=== PATIENT | male | born 1950 | race Caucasian/White ===

== ENCOUNTER 2017-12-01 06:19 | Observation (INO) | payer MEDICARE, MEDICAID ==
[~2017-12-01 06:19] MED LIST: Buffered Lidocaine 0.9% SYRIN* 5 ML/SYR SYRINGE INTRADERM ONE; Famotidine IV* 10 MG/ML 2 ML (20 mg) IV ONE; Metoclopramide TAB* 10 MG PO ONE
[2017-12-01] MEDS ORDERED: Famotidine IV* 10 MG/ML 2 ML (20 mg) ONE (06:50)
[2017-12-01] MEDS ORDERED: Buffered Lidocaine 0.9% SYRIN* 5 ML/SYR SYRINGE ONE (06:50)
[2017-12-01] MEDS ORDERED: Metoclopramide TAB* 10 MG ONE (06:50)
[2017-12-01] MEDS ORDERED: ceFAZolin 2 GM PREMIX (*) 2 GM/50 ML BAG IVPB ONE (06:50)
[2017-12-01] MEDS ORDERED: Rocuronium* 10 MG/ML VIAL ONE (07:05)
[2017-12-01] MEDS ORDERED: Propofol* 10 MG/ML 20 ML BTL IV PUSH ONE (07:05)
[2017-12-01] MEDS ORDERED: Ondansetron ODT TAB* 4 MG ONE (07:05)
[2017-12-01] MEDS ORDERED: Midazolam* 1 MG/ML 5 ML VIAL (5 MG) ONE (07:05)
[2017-12-01] MEDS ORDERED: Lidocaine 2% PF * 5 ML VIAL ONE (07:05)
[2017-12-01] MEDS ORDERED: fentaNYL* 50 MCG/ML 5 ML VIAL (250 MCG VIAL) ONE (07:05)
[2017-12-01] MEDS ORDERED: Phenylephrine INJ* 10 MG/ML 1 ML VIAL (10 MG) ONE ×2 (07:05→10:50)
[2017-12-01] MEDS ORDERED: Dexamethasone IV* 4 MG/ML 1 ML (4 MG) ONE (07:05)
[2017-12-01] MEDS ORDERED: KETAMINE HCL* 50 MG/ML 10 ML VIAL ONE (07:05)
[2017-12-01] MEDS ORDERED: Artificial Tear OPHTH.OINT* 3.5 GM ONE (07:06)
[2017-12-01] MEDS ORDERED: Lidocaine 1% MPF wEPI 200,000* 30 ML SDV ONE (07:08)
[2017-12-01] MEDS ORDERED: Bacitracin IV* 50,000 UNITS INJ ONE (07:08)
[2017-12-01] MEDS ORDERED: Thrombin 5,000 UNITS* 1 APPLIC KIT - topical use - TOPICAL ONE (07:08)
[2017-12-01] MEDS ORDERED: Naloxone* 0.4 MG/ML 1 ML VIAL IV PRN (11:50)
[2017-12-01] MEDS ORDERED: Ondansetron ODT TAB* 4 MG PO PRN (11:50)
[2017-12-01] MEDS ORDERED: Acetaminophen TAB* 325 MG PO PRN (12:25)
[2017-12-01] MEDS ORDERED: Magnesium Hydroxide LIQ* 30 ML UDC PO PRN (12:25)
[2017-12-01] MEDS ORDERED: Ondansetron INJ* 2 MG/ML VIAL IV PRN (12:25)
[2017-12-01] MEDS ORDERED: HYDROmorphone INJ* 2 MG/ML CARPUJECT SYRINGE ONE (12:25)
[2017-12-01] MEDS: HYDROmorphone INJ* 1 MG/ML CARPUJECT SYRINGE IV PRN ×2 (12:26→12:43)
[2017-12-01] MEDS ORDERED: Albuterol HFA INHALER* 8 gm MDI INH PRN (12:37)
[2017-12-01] MEDS ORDERED: Cyclobenzaprine TAB* 10 MG PO PRN (12:43)
[2017-12-01] MEDS ORDERED: fentaNYL* 50 MCG/ML 2 ML VIAL (100 MCG VIAL) ONE ×2 (12:53→13:42)
[2017-12-01] MEDS: fentaNYL* 50 MCG/ML 2 ML VIAL (100 MCG VIAL) IV PRN ×2 (12:54→13:07)
--- NOTE | 2017-12-01 13:06 | RAD ---
INDICATION: Fluoroscopy and O-arm guidance for lumbar sacral spine surgery. COMPARISON: No relevant prior exams available on the [facility] PACS for comparison. TECHNIQUE: 24.10 and 52.6 seconds fluoroscopy. FINDINGS: Spot images document anterior and posterior L4-L5 fusion IMPRESSION: Procedural fluoroscopy. CPT II Codes: G9500
--- NOTE | 2017-12-01 13:06 | RAD ---
INDICATION: Fluoroscopy and O-arm guidance for lumbar sacral spine surgery. COMPARISON: No relevant prior exams available on the [facility] PACS for comparison. TECHNIQUE: 24.10 and 52.6 seconds fluoroscopy. FINDINGS: Spot images document anterior and posterior L4-L5 fusion IMPRESSION: Procedural fluoroscopy. CPT II Codes: G9500
[2017-12-01] MEDS: HYDROcodone/ACETAMIN 5-325 MG* 1 TAB PO PRN ×2 (14:05→18:05)
[2017-12-01] MEDS ORDERED: Morphine VIAL* 4 MG/ML VIAL (1 ml vial) IV ONE ×2 (15:39→15:40)
[2017-12-01] MEDS ORDERED: Morphine VIAL* 4 MG/ML VIAL (1 ml vial) IV PRN (18:48)
[2017-12-01] MEDS: oxyCODONE/Acetamin 5/325 MG* TAB PO PRN (22:31)
--- NOTE | 2017-12-02 08:17 | RAD ---
INDICATION: Postoperative L4-L5 fusion COMPARISON: Lumbar spine September 13, 2017 TECHNIQUE: Routine PA, lateral, and oblique imaging was performed . FINDINGS: Bones: There is interval posterior fusion at L4-L5. There is no evidence of hardware failure.. There are arthritic findings consisting of degenerative disease with endplate sclerosis and marginal osteophyte formation most severe about L1-L2. Alignment: Normal Disc spaces: As above. Multilevel degenerative disc disease Soft tissues: There are no soft tissue abnormalities. IMPRESSION: POSTOPERATIVE L4-L5 FUSION. NO FINDINGS OF HARDWARE FAILURE.
[2017-12-02] MEDS ORDERED: Bisoprolol TAB* 5 MG PO SCH (09:00)
[2017-12-02] MEDS: oxyCODONE/Acetamin 5/325 MG* TAB PO PRN (12:12)
[2017-12-02 13:00] VITALS: BP 104/65
--- NOTE | 2017-12-02 13:00 | OP ---
AMENDED REPORT NOW INCLUDES DATE OF OPERATION - ESIGNED BEFORE ADJUSTMENT * DATE OF OPERATION: 12/01/17 DATE OF : 48 SURGEON: Mara Gordillo MD. ANESTHESIA: General PRE-OP DIAGNOSIS: L4-5 degenerative disk disease, stenosis and spondylolisthesis. POST-OP DIAGNOSIS: L4-5 degenerative disk disease, stenosis and spondylolisthesis. PROCEDURE PERFORMED: Patient underwent a left L4-5 minimal invasive TLIF with L5 decompressive laminectomy, left L5 foraminotomy, autologous iliac crest bone graft and local bone graft and DBX putty and pedicle screws at L5 and L4 with intraoperative navigation. ESTIMATED BLOOD LOSS: 30 cc. COMPLICATIONS: None. SUMMARY: The patient is a very pleasant 67-year-old gentleman with complains of back pain radiating into the left lower extremity with MRI findings consistent with a degenerative disk disease and spondylolisthesis at L4-5 with bilateral neuroforaminal stenosis. After failing conservative modalities, he was offered the option of surgical intervention in the form of left L4-5 TLIF. After explaining expectations, limitations, and possible complication of the procedure with the patient and his family with complications including but not limited to bleeding, infection, risk of injury to adjacent structures, coma, paralysis, , need for additional procedure, anesthesia risk, stroke, blindness, cancer, instability, hardware failure, adjacent level disease, pseudoarthrosis, may need additional procedures in the future, and the need for placement of lumbar drain, and prolonged ICU stay. The patient was agreeable to proceed with surgery. Informed consent was obtained. The patient and his understood that his condition may not improve and in fact may get worse after the surgery and he may need to have additional procedure in the future. They also understood that the operative plan may be modified according to intraoperative findings and conditions. DESCRIPTION OF PROCEDURE: The patient was brought to the operating room and was placed under general anesthesia by the anesthesia team. He was carefully positioned prone on the Prabhjot table and all bony prominences were meticulously padded. His skin was prepped and draped in the standard fashion and after appropriate surgical pause and patient identification, a small incision over the right iliac crest was made after infiltrating the skin with local anesthetic. A Corex trocar was used to harvest iliac crest bone graft in a minimally invasive way and subsequently the navigation star was secured to the iliac crest through the same incision. A O-arm imaging was obtained intraoperatively and the patient's data was transferred to the navigation platform. The trajectories of the pedicle screws as well as placement of tubular retractor site was marked in the skin and skin was infiltrated with local anesthetic. A #10 surgical blade used to incise the skin on the left side. After incising the dorsal fascia and with series of dilators under stereotactic navigation, tubular METRx retractor system was introduced into the field over the L4-5 disk space. Intraoperative microscope was brought into the field and after removing the remaining fibers of paraspinal musculature, the lamina on the left L4 was exposed. High speed drill was used to fasten a laminectomy of L4, extending to the contralateral side as well as medial facetectomy. Locally harvested bone graft was saved for the arthrodesis part of the procedure. The ligament of flavum was then gently retracted with Moore #4 and Kerrison punches. The laminectomy was completed with Kerrison punches and lateral part of the dura and the exiting L5 nerve root was identified. For the preparation of the disk space, the thecal sac was then retracted medially with a nerve root retractor and diskectomy and preparation of the disk space was performed after incising the annulus fibrosis with #15 surgical blade. After meticulous preparation of the end plates and proper sizing of the disk space, Elevate cage PEEK BIlprospekts with 9 mm starting height x 28 mm length was inserted after being filled with locally harvested bone graft, iliac crest bone graft as well as DBX putty while the remainder of the graft was placed into the disk space prior to the insertion of the cage. A second O-arm imaging was then obtained, and confirmed excellent placement of the cage. The data was again transferred to the navigation platform and the trajectories of all the pedicle screws were marked in the skin. The right side skin incision site was infiltrated with local anesthetic and the skin was incised with #10 surgical blade. Under the stereotactic navigation and fluoroscopic confirmation, the pedicles of L4 and L5 were cannulated and 6.5 x 45 mm Voyager Medtronic screws were placed in all pedicles. Two 45 mm rods were placed through the same skin incisions and secured with screw head caps. Another O-arm spin imaging was performed and we confirmed excellent placement of all hardware. After removing of the extension towers and the navigation pin, the wounds were meticulously closed after meticulous irrigation, confirmation of meticulous hemostasis and meticulous inspection. Intraoperative postop imaging confirmed excellent placement of all hardware. The dorsal fascia was approximated with interrupted 0-Vicryl sutures, while subcutaneous tissue was approximated with interrupted 2-0 Vicryl sutures. The skin was then covered with Dermabond. At the end of the procedure, all counts were reported to be correct. The patient remained hemodynamically stable throughout the case. He was then turned supine and was extubated and was transferred to the Recovery in excellent condition. The case was done with assistance of surgical PA because of the complexity of the case. [id number]/[facility] #: [id number] JOY
--- NOTE | 2017-12-02 21:18 | PN ---
Progress Note - Progress Note Date of Service: 12/02/17 SOAP: Subjective: []Patient seen earlier. No events ON. Tolerated procedure well yesterday. LLE pain resolved. Minimal incisional pain. Ambulates, Voids, Tolerates PO well. Wants to go home. Objective: []VSS, Afebrile Wound soft,clean,dry AAOx3, BAHMAN, CN II-XII grossly intact Motor 5/5 all extremities Sensory grossly intact to light touch Assessment: [] 67 yom POD#1 MIS Lt L4-5 TLIF Plan: []XR reveals good placement of hardware and alignment Encourage ambulation DC plan Full instructions were given. Ruma Gordillo MD
== END 2017-12-02 14:25 | disposition home or self-care (01) ==
LOC: INTOOBSV 06:19 → AA 06:19 → SSU 13:51
PROVIDERS: ADMIT Neurological Surgery; ATTEND Neurological Surgery
PROC: 01NB0ZZ Release Lumbar Nerve, Open Approach (ICD-10-PCS; 2017-12-01)
PROC: 01NB0ZZ Release Lumbar Nerve, Open Approach (ICD-10-PCS; principal; 2017-12-01 07:30)
DX: M43.16 Spondylolisthesis, lumbar region (principal); M47.26 Other spondylosis with radiculopathy, lumbar region; I48.92 Unspecified atrial flutter; J45.909 Unspecified asthma, uncomplicated; Z85.46 Personal history of malignant neoplasm of prostate; Z79.899 Other long term (current) drug therapy
CPT/HCPCS: 72100; 76001; 96374; 96375; A9270-GY; C1713; C9359; G0378; J0690; J1100; J1170; J2001; J2250; J2270; J2704; J3010

== ENCOUNTER 2020-11-27 05:47 | Observation (INO) ==
[2020-11-27] MEDS ORDERED: Lactated Ringers 1000 ml BAG 1,000 ML IV SCH ×2 (06:00)
[2020-11-27] MEDS ORDERED: Buffered Lidocaine 1% SYRIN 1 ml INTRADERM ONE ×2 (06:00)
[2020-11-27] MEDS ORDERED: ceFAZolin 2 GM PREMIX 2 GM/50 ML BAG ONE (06:13)
[2020-11-27] MEDS ORDERED: Lidocaine 2% PF 5 ML VIAL ONE (06:44)
[2020-11-27] MEDS ORDERED: fentaNYL 100 mcg/2 ml 50 MCG/ML VIAL ONE ×2 (06:44→11:28)
[2020-11-27] MEDS ORDERED: Midazolam 2 mg/2 ml VIAL 1 mg/ml 2 ml VIAL (2 mg) ONE (06:44)
[2020-11-27] MEDS ORDERED: Dexamethasone IV 4 MG/ML VIAL 1 ml VIAL ONE ×2 (06:46→08:20)
[2020-11-27] MEDS ORDERED: Bupivacaine 0.5% SDV PF 30ML VIAL ONE (06:46)
[2020-11-27] MEDS ORDERED: Lidocaine 1% MPF 5 ML VIAL ONE (06:51)
[2020-11-27] MEDS ORDERED: Ropivacaine 5 MG/ML 20 ML VIAL 0.5% (100 MG) ONE (07:08)
[2020-11-27] MEDS ORDERED: Rocuronium 50 mg VIAL 10 mg/ml 5 ml VIAL (50 mg) ONE ×2 (07:21→08:12)
[2020-11-27] MEDS ORDERED: HYDROmorphone 1 MG/1 ML SYRINGE ONE ×3 (07:44→08:52)
[2020-11-27] MEDS ORDERED: Metoprolol Tartrate 5 mg VIAL 5 ml VIAL (1 mg/ml) ONE (07:52)
[2020-11-27] MEDS ORDERED: Ondansetron 4 mg VIAL 2 MG/ML 2 ml VIAL ONE (08:20)
[2020-11-27] MEDS ORDERED: Propofol 10 MG/ML 20 ML BTL ONE ×2 (09:12→10:20)
[2020-11-27] MEDS ORDERED: HYDROmorphone 1 MG/1 ML SYRINGE IV PRN (09:47)
[2020-11-27] MEDS ORDERED: Naloxone 0.4 mg VIAL 0.4 mg/ml 1 ml VIAL IV PRN (09:47)
[2020-11-27] MEDS ORDERED: diPHENhydraMINE IV 50 MG/ML 1 ml VIAL (BENADRYL) IV PRN ×2 (09:47→10:44)
[2020-11-27] MEDS ORDERED: Morphine 2 MG/ML SYRINGE IV PRN (10:44)
[2020-11-27] MEDS ORDERED: Ondansetron ODT 4 mg TAB 4 MG TAB PO PRN (10:44)
[2020-11-27] MEDS ORDERED: Ondansetron 4 mg VIAL 2 MG/ML 2 ml VIAL IV PRN (10:44)
[2020-11-27] MEDS ORDERED: Lactulose 30 ml UDC PO PRN (10:44)
[2020-11-27] MEDS ORDERED: Magnesium Hydroxide LIQ 30 ML UDC PO PRN (10:44)
[2020-11-27] MEDS ORDERED: diPHENhydraMINE 25 mg TAB PO PRN (10:44)
[2020-11-27] MEDS: fentaNYL 100 mcg/2 ml 50 MCG/ML VIAL IV PRN ×4 (11:29→11:46)
[2020-11-27] MEDS: Lactated Ringers 1000 ml BAG 1,000 ML IV SCH ×2 (12:54→22:33)
[2020-11-27] MEDS: ceFAZolin 1 GM ADVAN 1 GM in NS 0.9% 50 ML 50 ML IVPB SCH (16:11)
[2020-11-27] MEDS: Magnesium Hydroxide LIQ 30 ML UDC PO SCH ×2 (20:41→20:43)
[2020-11-28] MEDS: ceFAZolin 1 GM ADVAN 1 GM in NS 0.9% 50 ML 50 ML IVPB SCH ×2 (00:22→08:12)
[2020-11-28 05:41] LABS: Hematocrit 34 % (42-52); Hemoglobin 11.6 g/dL (14.0-18.0); Mean Platelet Volume 7.6 fL (7.4-10.4); Platelet Count 201 10^3/uL (150-450)
[2020-11-28 05:56] LABS: Calcium 8.8 mg/dL (8.6-10.3); EGFR African American 100.7 (>60); EGFR Non-African American 83.2 (>60); Potassium 4.2 mmol/L (3.5-5.0)
[2020-11-28] MEDS: Magnesium Hydroxide LIQ 30 ML UDC PO SCH (08:16)
[2020-11-28] MEDS ORDERED: Vitamin THERAPEUTIC TAB PO SCH (09:00)
[2020-11-28] MEDS ORDERED: Pneumococcal Vac 23-Polyvalent IM ONE (09:00)
[2020-11-28 11:33] VITALS: BP 109/49
== END 2020-11-28 12:50 | disposition home or self-care (01) ==
LOC: OR 05:47 → SSU 05:47 → EDSTATUS 13:30
PROVIDERS: ADMIT Orthopaedic Surgery Adult Reconstructive Orthopaedic Surgery; ATTEND Orthopaedic Surgery Adult Reconstructive Orthopaedic Surgery